=== PATIENT | female | born 1985 | race Two or more races ===

== ENCOUNTER 2018-12-01 03:13 | Emergency (ER) | payer OTHER ==
[~2018-12-01] VITALS: Ht 154.9 cm; Wt 104.3 kg
[~2018-12-01 03:13] MED LIST: FIORICET 50-301 EACH PO; KETO10TA2 PO; ORPH100T PO
== END 2018-12-01 10:31 | disposition home or self-care (01) ==
LOC: ER 03:13 → CPU-OBS 03:30 → ER 03:30
DX: R07.89 Other chest pain (principal)
CPT/HCPCS: G0378; G0379; 93005

== ENCOUNTER → 2019-08-17 | Emergency (ER) | payer OTHER ==
[~2019-08-17] VITALS: Ht 154.9 cm; Wt 105.7 kg
[~2019-08-17] MED LIST changes: +ORPHENADRINE C100 MG PO
== END ==
LOC: ER 00:31
DX: M54.5 Low back pain (principal)

== ENCOUNTER 2022-01-03 01:26 | Emergency (ER) | payer OTHER ==
[~2022-01-03] VITALS: Ht 154.9 cm; Wt 105.2 kg
[2022-01-03] MEDS ORDERED: MOBIC15 MG PO (05:21)
== END 2022-01-03 05:42 | disposition home or self-care (01) ==
LOC: ER 01:26
DX: S76.912A Strain of unspecified muscles, fascia and tendons at thigh level, left thigh, initial encounter (principal)

== ENCOUNTER 2022-02-28 10:45 | Emergency (ER) | payer OTHER ==
[~2022-02-28] VITALS: Ht 154.9 cm; Wt 105.2 kg
[~2022-02-28 10:45] MED LIST changes: +MOBIC15 MG PO
== END 2022-02-28 14:55 | disposition home or self-care (01) ==
LOC: ER 10:45
DX: B34.9 Viral infection, unspecified (principal); Z20.822 Contact with and (suspected) exposure to COVID-19

== ENCOUNTER 2022-08-30 03:38 | Emergency (ER) | payer OTHER ==
[~2022-08-30] VITALS: Ht 154.9 cm; Wt 108.9 kg
[2022-08-30] MEDS ORDERED: HORIZANT300 MG (03:45)
[2022-08-30] MEDS ORDERED: KETO10TA2 PO (06:22)
[2022-08-30] MEDS ORDERED: NORFLEX100MG PO (06:22)
== END 2022-08-30 06:50 | disposition home or self-care (01) ==
LOC: ER 03:38
DX: M79.662 Pain in left lower leg (principal); S86.912A Strain of unspecified muscle(s) and tendon(s) at lower leg level, left leg, initial encounter; X58.XXXA Exposure to other specified factors, initial encounter; Y93.9 Activity, unspecified; Y92.9 Unspecified place or not applicable; Y99.9 Unspecified external cause status

== ENCOUNTER 2022-10-26 09:07 | Emergency (ER) | payer OTHER ==
[~2022-10-26] VITALS: Ht 154.9 cm; Wt 106.1 kg
[~2022-10-26 09:07] MED LIST changes: +HORIZANT300 MG; +NORFLEX100MG PO
[2022-10-26] MEDS ORDERED: PEPCID AC20 MG (09:17)
== END 2022-10-26 12:52 | disposition home or self-care (01) ==
LOC: ER 09:07
DX: M54.89 Other dorsalgia (principal); M54.9 Dorsalgia, unspecified; R10.9 Unspecified abdominal pain

== ENCOUNTER → 2022-12-22 | Emergency (ER) | payer OTHER ==
[~2022-12-22] MED LIST changes: +PEPCID AC20 MG
== END | disposition left against medical advice (07) ==
LOC: ER 17:47
DX: Z53.21 Procedure and treatment not carried out due to patient leaving prior to being seen by health care provider (principal)

== ENCOUNTER 2023-01-03 14:25 | Emergency (ER) | payer OTHER ==
[~2023-01-03] VITALS: Ht 154.9 cm; Wt 147.0 kg
== END 2023-01-03 19:26 | disposition home or self-care (01) ==
LOC: ER 14:25
DX: M25.562 Pain in left knee (principal); M25.572 Pain in left ankle and joints of left foot

== ENCOUNTER 2023-07-02 02:20 | Emergency (ER) | payer OTHER ==
[~2023-07-02] VITALS: Ht 154.9 cm; Wt 108.9 kg
[2023-07-02 05:24] LABS: HEMATOCRIT 36.4 % (36.0-45.00); HEMOGLOBIN 12.5 g/dL (12.0-15.00); MEAN CELL VOLUME 88.5 fL (80.00-100.00); MEAN CORPUSCULAR HEMOGLOBIN 30.4 pg (27.00-32.0); MEAN CORPUSCULAR HGB CONC 34.3 g/dl (32.0-36.0); PLATELET COUNT 247 K/uL (150-450); RED BLOOD COUNT 4.11 M/uL (4.00-6.00); RED CELL DISTRIBUTION WIDTH 13.8 % (11.5-14.5)
[2023-07-02] MEDS ORDERED: ZYNCOF 20-400120 ML PO (06:44)
[2023-07-02] MEDS ORDERED: ALBUTEROL2.5 MG/3 M IH (06:44)
[2023-07-02] MEDS ORDERED: PHENAGIL TABLE1 EACH PO (06:44)
== END 2023-07-02 08:12 ==
LOC: ER 02:20
PROVIDERS: General Practice
DX: R50.9 Fever, unspecified (principal); R05.8 Other specified cough; Z20.822 Contact with and (suspected) exposure to COVID-19

== ENCOUNTER 2024-03-27 13:17 | Emergency (ER) | payer OTHER ==
[~2024-03-27] VITALS: Ht 154.9 cm; Wt 104.3 kg
[~2024-03-27 13:17] MED LIST changes: +ALBUTEROL2.5 MG/3 M IH; +PHENAGIL TABLE1 EACH PO; +ZYNCOF 20-400120 ML PO
[2024-03-27 17:07] LABS: PH,URINE 5.5 (5.0-8.0); URINE APPEARANCE Turbid; URINE BILIRRUBIN Negative (NEGATIVE); URINE BLOOD Large; URINE COLOR Yellow; URINE GLUCOSE Negative (NEGATIVE); URINE KETONE Negative (NEGATIVE); URINE LEUKOCYTE Moderate; URINE NITRATE Positive
[2024-03-27 17:07] LABS: HEMATOCRIT 37.5 % (36.0-45.00); HEMOGLOBIN 12.5 g/dL (12.0-15.00); MEAN CELL VOLUME 86.3 fL (80.00-100.00); MEAN CORPUSCULAR HEMOGLOBIN 28.7 pg (27.00-32.0); MEAN CORPUSCULAR HGB CONC 33.3 g/dl (32.0-36.0); PLATELET COUNT 238 K/uL (150-450); RED BLOOD COUNT 4.34 M/uL (4.00-6.00); RED CELL DISTRIBUTION WIDTH 13.8 % (11.5-14.5)
[2024-03-27 17:11] LABS: URINE EPITHELIAL CELLS 19.3 uL (0.0-38.8); URINE WBC 3806.5 uL (0.0-23.2)
[2024-03-27 17:27] LABS: URINE BACTERIA > 9821.5 uL (0.0-1933); URINE CAST 0.15 uL (0.0-1.40); URINE PROTEIN 300 (NEGATIVE)
[2024-03-27 17:28] LABS: URINE CRYSTALS FEW /HPF; URINE MUCUS SCANT
[2024-03-27 17:30] LABS: CALCIUM 9.4 mg/dL (8.5-10.1); CREATININE SERUM 0.74 mg/dL (0.55-1.02); GFR 88.31; POTASSIUM 3.97 mEq/L (3.5-5.1)
== END 2024-03-27 18:41 | disposition home or self-care (01) ==
LOC: ER 13:19
PROVIDERS: General Practice
DX: N39.0 Urinary tract infection, site not specified (principal)

== ENCOUNTER 2025-02-20 23:56 | Emergency (ER) | payer OTHER ==
[~2025-02-20] VITALS: Ht 154.9 cm; Wt 108.0 kg
[2025-02-21] MEDS ORDERED: ORPHENADRINE CITRATE 30 MG/ML AMPUL IM STA (01:46)
[2025-02-21] MEDS ORDERED: DEXAMETHASONE SODIUM PHOSPHATE 4 MG/ML VIAL IM STA (01:46)
[2025-02-21] MEDS ORDERED: KETOROLAC TROMETHAMINE 60 MG VIAL IM STA (01:47)
[2025-02-21] MEDS ORDERED: ACETAMINOPHEN 500 MG GEL..CAP PO STA (01:47)
== END 2025-02-21 03:05 | disposition home or self-care (01) ==
LOC: ER 23:56
DX: M62.830 Muscle spasm of back (principal)